=== PATIENT | female | born 1970 | race Caucasian/White ===

== ENCOUNTER 2021-12-26 08:14 | Outpatient (CLI) | payer OTHER, SELFPAY ==
--- NOTE | 2021-12-26 08:15 | TELERAD_ITS ---
[address] [address] Phone:?[phone] Fax:?[phone] Referring Physician Information: Mg Ashley [address] [facility] [facility] [address] Phone:?[phone] Fax:?[phone] Patient:Jing Lu D.O.B:?1970 Sex:?Female Phone:?[phone] [facility] MRN:[id number] Exam Date:?12/26/2021 ? EXAM: MRI of the RIGHT KNEE, without contrast CLINICAL INFORMATION: Female, 51 years old, with knee pain INDICATION: Knee pain PRIOR SURGERY: None reported. PLAIN FILMS: None available. COMPARISONS: No prior MRIs available. TECHNICAL INFORMATION: Using a 1.5T MR scanner and a localizing surface coil: sagittals: PD, PDFS coronals: PD, T2FS axials: PD, PDFS SEDATION: None CONTRAST: None FINDINGS: Knee joint: Effusion: Small sized right knee effusion. Popliteal cyst: None. Loose bodies: None. Subcutaneous and extra-articular soft tissues: Unremarkable. Ligaments: ACL: Intact ACL anteromedial and posterolateral bundles, without sprain or tear. PCL: Intact PCL, without acute or chronic injury. MCL: Intact MCL superficial and deep layers, without injury. LCL: Intact LCL, without injury. Posterolateral corner: No posterolateral corner soft tissue injury. Popliteus, biceps femoris, iliotibial band, popliteofibular ligament and lateral gastrocnemius are intact. Posteromedial corner: No posteromedial corner soft tissue injury. Semimembranosus, pes anserine tendons and posterior oblique ligament are without injury, tendinopathy or bursitis. Extensor mechanism: Patellar tendon: Intact, without tendinopathy. Quadriceps tendon: Intact, without tendinopathy. Retinacula: Medial and lateral retinacula are intact. Fat pads: Unremarkable infrapatellar Hoffa's, quadriceps and prefemoral fat pads. Medial compartment: Medial meniscus: Medial meniscus is abnormal in appearance with horizontal cleavage undersurface tearing in the posterior body and posterior horn over a length of approximately 1.6 cm (sagittal series 3). Complex intermediate grade vertical or radial tearing posterior horn/root without complete posterior root disruption (sagittal series 6 images 21-17). 8 mm meniscal flap is seen along the apical free edge of the posterior root (coronal series 7 image 21, sagittal series 6 image 18). Tearing results in 4 mm peripheral meniscal extrusion at the level of the body. Medial femoral condyle: Grade II/III chondral thinning along the anterior weightbearing medial femoral condyle measuring 15 x 15 mm with minimal spurring and marrow edema. Medial tibial plateau: Grade 2 chondral thinning along the posterior medial tibial plateau centrally. Lateral compartment: Lateral meniscus: No articular surface, meniscosynovial junction or root tear. No displacement, extrusion or parameniscal cyst. Lateral femoral condyle: No chondromalacia or osteochondral abnormality. Lateral tibial plateau: Grade II chondromalacia along the central weightbearing lateral tibial plateau without high-grade or full-thickness chondral defect. Patellofemoral joint: Patella: Grade 2 chondral thinning of the mid medial patellar facet and central midline ridge with focal near full-thickness fissure of the mid lateral patellar facet. Trochlea: No chondromalacia or osteochondral abnormality. Proximal tibiofibular joint: Proximal tibiofibular joint DJD with osteophytic spurring and subchondral cystic change. Bones: No stress/occult fractures or other marrow edema/pathology. IMPRESSION: 1. Complex tearing of the medial meniscus from the posterior body to the posterior horn/root as described above with intermediate grade incomplete tearing of the posterior horn/root. 8 mm meniscal flap at the apical free edge of the posterior root. Tearing results in 4 mm peripheral meniscal extrusion at the level of the body. 2. Medial compartment chondromalacia with grade 2 and grade 3 chondral changes as described above with marrow reactive edema in the medial femoral condyle and tibial plateau. 3. Mild lateral and patellofemoral chondromalacia without high-grade or full- thickness defect. 4. No lateral meniscus tear. 5. No cruciate or collateral ligament sprain/tear. 6. Small left knee joint effusion KME Electronically signed on 12/29/2021 9:49:00 AM by Desirae Lees M.D.
== END 2021-12-26 08:15 | disposition home or self-care (01) ==
LOC: MRI 08:17
PROVIDERS: Visit Provider Physician Assistant Surgical
DX: M25.561 Pain in right knee (principal); M23.221 Derangement of posterior horn of medial meniscus due to old tear or injury, right knee; M94.261 Chondromalacia, right knee; M25.461 Effusion, right knee
CPT/HCPCS: 73721

== ENCOUNTER 2022-03-12 06:09 | Day surgery (SDC) | payer OTHER, SELFPAY ==
[2022-03-12] VITALS (13 sets, daily range): BP systolic 93–142; BP diastolic 52–82; PULSE 59–81; RESP 16–18; TEMP 36.2–36.7; O2SAT 96–100; BMI 34.8
[2022-03-12 06:41] LABS: Ur HCG Qualitative* Negative (Negative)
[2022-03-12] MEDS: SODIUM CHLORIDE 0.9 % (FLUSH) 10 ML SYRINGE IVF (07:00)
[2022-03-12] MEDS: LACTATED RINGERS 1000 ML 1,000 ML 100 ML IV ×2 (07:00→08:24)
[2022-03-12] MEDS: CEFAZOLIN 2 GM INJ IVP (07:46)
[2022-03-12] MEDS: BUPIVACAINE 0.25% 30 ML INJECTION (08:25)
--- NOTE | 2022-03-12 08:25 | PM.ORPRC ---
Procedure Note Date of procedure: 03/12/22 Procedure: SURGEON: Parish Decker MD ELECTRIC RELAY TESTER: YESICA Lacey PREOPERATIVE DIAGNOSIS: Right knee medial meniscus tear POSTOPERATIVE DIAGNOSIS: Right knee medial meniscus tear NAME OF OPERATION: Right knee arthroscopic partial medial meniscectomy ANESTHESIA: Spinal ESTIMATED BLOOD LOSS: 0 mL COMPLICATIONS: None SPECIMENS: None DRAINS: None PREOPERATIVE ANTIBIOTICS: Ancef 2 gram INDICATIONS: The patient is a 51-year-old female with a history of right knee medial pain. MRI scan is consistent with a medial meniscus tear. Despite appropriate nonoperative management, including activity modification, antiinflammatories, [id number] pain medication, bracing, physical therapy, and injections they continue to have pain and disability. Operative intervention was offered. The risks, benefits and expected outcomes were discussed in detail. These included but were not limited to: Infection, bleeding, injury to blood vessel or nerve, venous thromboembolism. All questions were answered to their satisfaction. PROCEDURE: Spinal anesthesia was administered. The patient was placed supine on the operating room table. The right lower extremity was prepped and draped in the usual sterile fashion. The limb was exsanguinated with the Kwadwo bandage. The pneumatic tourniquet was inflated to 300 mmHg. A standard anterolateral portal was established. The arthroscope was introduced. The working portal was established anteromedially. Diagnostic arthroscopy was performed with findings as follows: The suprapatellar pouch is normal. Articular surface on the patella shows diffuse grade 2/3 change. Articular surface on the trochlea shows diffuse grade 2/3 change for. The medial gutter is normal. The medial compartment shows diffuse grade 3 change on the medial femoral condyle, grade 2 change on the medial tibial plateau. The medial meniscus has a complex degenerative tear of the posterior horn, into the midbody. This consists of an unstable flap tear at the posterior tibial attachment and undersurface horizontal cleavage tearing of the posterior horn, into the midbody, extending into undersurface of the anterior horn. The notch shows the ACL to be intact. The lateral compartment shows normal articular cartilage on the lateral femoral condyle and lateral tibial plateau. The lateral meniscus is normal. The lateral gutter is normal. The posterior horn of the medial meniscus was debrided to a stable base using a combination of baskets and shaver through both portals. Unstable chondral flaps on the medial femoral condyle, and patella were debrided with the shaver, taken to a stable base. Arthroscopic instruments were removed, the portal sites were Steri-Stripped closed, the knee was infiltrated with 30 mL of 0.25% Marcaine without epinephrine. A dry dressing was applied, the tourniquet was released. Sponge and needle counts were correct x 2. The patient tolerated the procedure well. There were no apparent complications. They were carefully transferred to the hospital bed and taken to the postanesthesia care unit in satisfactory condition. PLAN: The patient will be discharged to home. They may weightbear as tolerates. Range of motion will be unrestricted. They will follow up in the office next week for a wound check.
--- NOTE | 2022-03-12 08:43 | W.ANESCHARGE ---
Anesthesia Charges Start Date/Time Anesthesia Start Date: 03/12/22 Anesthesia Start Time: 07:31 Stop Date/Time Anesthesia Stop Date: 03/12/22 Anesthesia Stop Time: 08:32 Summary Emergency: No
--- NOTE | 2022-03-12 09:10 | W.ANESCHARGE ---
Anesthesia Charges Start Date/Time Anesthesia Start Date: 03/12/22 Anesthesia Start Time: 07:31 Stop Date/Time Anesthesia Stop Date: 03/12/22 Anesthesia Stop Time: 08:32 Summary Emergency: No
== END 2022-03-12 10:45 | disposition home or self-care (01) ==
PROVIDERS: Anesthesiology; Visit Provider Orthopaedic Surgery
PROC: (CPT 29882; principal; 2022-03-12 07:45)
DX: M23.221 Derangement of posterior horn of medial meniscus due to old tear or injury, right knee (principal)
CPT/HCPCS: 29881; 1400; 81025; J0690; J1100; J2250; J2405; J2704; J2795; J3010; J3490; J7120

== ENCOUNTER 2023-09-29 21:59 | Emergency (ER) | payer OTHER, SELFPAY ==
[2023-09-29 22:08] VITALS: BP 150/93; PULSE 76; RESP 16; TEMP 36; O2SAT 99; BMI 31.0
--- NOTE | 2023-09-29 22:11 | ED_ITS ---
HPI - GI Bleed General Time Seen by Provider: 22:11 Date Seen: 09/29/23 Chief complaint: GI Bleed Stated complaint: poss hemorroid burst Time Seen by Provider: 09/29/23 22:04 Source: patient, RN notes reviewed and old records reviewed Mode of arrival: ambulatory Limitations: no limitations History of Present Illness HPI Narrative: 52 year old female who comes in with rectal bleeding. Passed a clot with stooling earlier this evening after noticing a perirectal lump for couple of days. Not having too much pain but has had continued bleeding and so came to the emergency department Related Data Previous Rx's Medication Instructions Recorded docusate sodium 100 mg capsule 100 mg PO BID #10 caps 09/29/23 (Colace) Allergies Allergy/AdvReac Type Severity Reaction Status Date / Time No Known Drug Allergies Allergy Verified 05/13/22 13:58 [facility] Medical History (Updated 09/29/23 @ 22:25 by Luis Lackey MD) Thyroid disease ?E07.9 - Disorder of thyroid, unspecified (ICD-10) Surgical History (Updated 05/12/22 @ 12:53 by Liset Ghosh ~ [facility], [facility]) History of medial meniscus repair of right knee (03/12/22) ?Z98.890 - Other specified postprocedural states (ICD-10) History of laparoscopy ?Z98.890 - Other specified postprocedural states (ICD-10) History of suburethral sling procedure (2019) ?Z98.890 - Other specified postprocedural states (ICD-10) Social History (Reviewed 05/13/22 @ 13:58 by Liset Ghosh ~ [facility], [facility]) Narrative: , 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, 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, 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, social EtOH Smoking Status: Former smoker Do you use any of these nicotine containing products: None How often do you have a drink containing alcohol: never AUDIT-C Alcohol total score: 0 Non-prescribed substance use: denies use Caffeine: Yes Are you using contraception or practicing any form of control: No Exam Narrative: Exam Narrative: General: Well-developed and well-nourished, no acute distress Head: Atraumatic and normocephalic Eyes: Pupils are equal reactive, extraocular motions intact, conjunctiva clear ENT: External nose and ears are normal, posterior pharynx without erythema or exudate Neck: No midline cervical tenderness, full spontaneous range of motion the neck, trachea midline, no adenopathy Heart: Regular rate and rhythm no murmurs or thrills Lungs: Clear to auscultation bilaterally without wheezes or crackles Abdomen: Soft, nontender, nondistended with active bowel sounds Musculoskeletal: No tenderness, deformity, or edema Neurologic: Awake, alert, and oriented x3, no gross focal neurologic deficits, cranial nerves intact as tested Psych: Mood and affect are appropriate Skin: No rashes 15 mm thrombosed external hemorrhoid with central area fresh clot Const: Vital Signs, click to edit/add: Vital Signs - 24 hr 09/29/23 22:08 Temperature 96.8 F L Pulse Rate [Pulse Oximeter] 76 Respiratory Rate 16 Blood Pressure [Ri ght Upper Arm] 150/93 H Pulse Oximetry 99 Oxygen Delivery Me thod Room Air Course Course ED Course: Patient seen and examined, prior records are reviewed. Patient presents today with rectal bleeding, she has a bleeding external hemorrhoid. We discussed care of this and she follow-up with General surgery. Vital Signs Vital signs: Initial Vital Signs Temperature 96.8 F L 09/29/23 22:08 Temperature Source Temporal Artery Scan 09/29/23 22:08 Pulse Rate 76 09/29/23 22:08 Respiratory Rate 16 09/29/23 22:08 Blood Pressure 150/93 H 09/29/23 22:08 Blood Pressure Mean 112 H 09/29/23 22:08 Blood Pressure Position Sitting 09/29/23 22:08 Pulse Oximetry 99 09/29/23 22:08 Oxygen Delivery Method Room Air 09/29/23 22:08 Vital Signs Temperature 96.8 F L 09/29/23 22:08 Pulse Rate 76 09/29/23 22:08 Respiratory Rate 16 09/29/23 22:08 Blood Pressure 150/93 H 09/29/23 22:08 Pulse Oximetry 99 09/29/23 22:08 Oxygen Delivery Method Room Air 09/29/23 22:08 Temperature 96.8 F L 09/29/23 22:08 Pulse Rate 76 09/29/23 22:08 Respiratory Rate 16 09/29/23 22:08 Blood Pressure 150/93 H 09/29/23 22:08 Pulse Oximetry 99 09/29/23 22:08 Oxygen Delivery Method Room Air 09/29/23 22:08 Discharge Plan Discharge Clinical Impression: Bleeding external hemorrhoids Patient Disposition: Home, Self-Care Condition: Stable Instructions: Hemorrhoids (ED), Thrombosed Hemorrhoid (ED) Additional Instructions: Luke warm Sitz bath 2-3 times a day Take stool softeners prescribed For bleeding, apply cool pack and pressure Call the general surgery clinic for follow-up at [phone] or [phone] for an appointment in 2-4 days Activity Level: No strenuous activity Discharge Diet: High Fiber Prescriptions: New docusate sodium [Colace] 100 mg capsule 100 mg PO BID Qty: 10 0RF Follow Up/Referrals: Provider,Not a Local [Primary Care Provider] - Stand Alone Forms: Monitoring Divisionth Info Instructions
== END 2023-09-29 22:37 | disposition home or self-care (01) ==
LOC: ED 22:30
PROVIDERS: Emergency Provider Family Medicine
DX: K64.4 Residual hemorrhoidal skin tags (principal)
CPT/HCPCS: 99283

== ENCOUNTER 2024-09-29 09:10 | Outpatient (CLI) | payer OTHER, SELFPAY ==
[2024-10-01 04:16] LABS: HPV Source Cervix; HPV, High Risk by TMA Not Detected
== END 2024-09-29 09:11 | disposition home or self-care (01) ==
PROVIDERS: Visit Provider Obstetrics & Gynecology
DX: E03.9 Hypothyroidism, unspecified (principal); G25.81 Restless legs syndrome; R53.83 Other fatigue; Z12.4 Encounter for screening for malignant neoplasm of cervix; Z11.51 Encounter for screening for human papillomavirus (HPV); Z13.6 Encounter for screening for cardiovascular disorders; Z13.1 Encounter for screening for diabetes mellitus
CPT/HCPCS: 80061; 82728; 82947; 84443; 87624; 87625; 88141; 88142

== ENCOUNTER 2024-10-05 08:27 | Outpatient (CLI) | payer OTHER, SELFPAY ==
--- NOTE | 2024-10-05 08:45 | CRLHL7_ITS ---
For Patients: As a result of the Century Cures Act, medical imaging exams and procedure reports are released immediately into your electronic medical record. You may view this report before your referring provider. If you have questions, please contact your health care provider. CLINICAL HISTORY: RIGHT breast lump. COMPARISON: 10/05/24, 09/06/18, 12/09/16 TECHNIQUE: Digital BILATERAL mammogram in 2 projections with computer-aided detection. Tomosynthesis was used in this interpretation. Real-time ultrasound imaging of RIGHT breast with imaging documentation. BREAST COMPOSITION: There are scattered areas of fibroglandular density. FINDINGS: 3D cc/MLO bilateral mammogram images submitted. No suspicious mass or architectural distortion. No suspicious calcifications or adenopathy. Targeted right breast ultrasound performed 3 o`clock 3 cm from the nipple. Normal breast tissue is present. No fibrocystic change or mass. IMPRESSION: No suspicious findings. No evidence of malignancy. RECOMMENDATIONS: Routine screening mammography. A lay language report of this examination will be provided to the patient. BI-RADS Category 1. Negative. Dictated by: Aden Booker MD @ 10/05/2024 15:14:40 (Electronically Signed)
--- NOTE | 2024-10-05 09:15 | CRLHL7_ITS ---
For Patients: As a result of the Century Cures Act, medical imaging exams and procedure reports are released immediately into your electronic medical record. You may view this report before your referring provider. If you have questions, please contact your health care provider. CLINICAL HISTORY: RIGHT breast lump. COMPARISON: 10/05/24, 09/06/18, 12/09/16 TECHNIQUE: Digital BILATERAL mammogram in 2 projections with computer-aided detection. Tomosynthesis was used in this interpretation. Real-time ultrasound imaging of RIGHT breast with imaging documentation. BREAST COMPOSITION: There are scattered areas of fibroglandular density. FINDINGS: 3D cc/MLO bilateral mammogram images submitted. No suspicious mass or architectural distortion. No suspicious calcifications or adenopathy. Targeted right breast ultrasound performed 3 o`clock 3 cm from the nipple. Normal breast tissue is present. No fibrocystic change or mass. IMPRESSION: No suspicious findings. No evidence of malignancy. RECOMMENDATIONS: Routine screening mammography. A lay language report of this examination will be provided to the patient. BI-RADS Category 1. Negative. Dictated by Aden Booker MD @ 10/05/2024 11:26:59 AM (Electronically Signed)
== END 2024-10-05 08:28 | disposition home or self-care (01) ==
LOC: MAMMO 08:28
PROVIDERS: Visit Provider Obstetrics & Gynecology
DX: N63.10 Unspecified lump in the right breast, unspecified quadrant (principal)
CPT/HCPCS: 76642; 77066; G0279

== ENCOUNTER 2024-10-12 12:14 | Outpatient (CLI) | payer OTHER, SELFPAY ==
--- NOTE | 2024-10-12 13:35 | P.ANES_ITS ---
Anesthesia Charges Start Date/Time Anesthesia Start Date: 10/12/24 Anesthesia Start Time: 13:00 Stop Date/Time Anesthesia Stop Date: 10/12/24 Anesthesia Stop Time: 13:33 Coding CPT Codes CPT Codes: ANGELES LWR INTST NDSC NOS - 99697 ([id number]) P2 - PATIENT W/MILD SYST DISEASE, QX - CASINO INVESTIGATOR SVC W/ MD MED DIRECTION, QK - HVAC/R SERVICE TECHNICIAN 2-4 CNCRNT ANES PROC
--- NOTE | 2024-10-12 13:35 | W.ANESCHARGE ---
Anesthesia Charges Start Date/Time Anesthesia Start Date: 10/12/24 Anesthesia Start Time: 13:00 Stop Date/Time Anesthesia Stop Date: 10/12/24 Anesthesia Stop Time: 13:33 Coding CPT Codes CPT Codes: ANGELES LWR INTST NDSC NOS - 91908 ([id number]) P2 - PATIENT W/MILD SYST DISEASE, QX - RUNSTITCHING MACHINE OPERATOR SVC W/ MD MED DIRECTION, QK - ROLL UP HELPER 2-4 CNCRNT ANES PROC
--- NOTE | 2024-10-12 14:00 | P.ANES_ITS ---
Anesthesia Charges Start Date/Time Anesthesia Start Date: 10/12/24 Anesthesia Start Time: 13:00 Stop Date/Time Anesthesia Stop Date: 10/12/24 Anesthesia Stop Time: 13:33 Coding CPT Codes CPT Codes: ANGELES LWR INTST NDSC NOS - 91743 ([id number]) QK - AUDIO OPERATOR 2-4 CNCRNT ANGELES PROC, QX - JIG BUILDER SVC W/ MD MED DIRECTION, P2 - PATIENT W/MILD SYST DISEASE
--- NOTE | 2024-10-12 14:00 | W.ANESCHARGE ---
Anesthesia Charges Start Date/Time Anesthesia Start Date: 10/12/24 Anesthesia Start Time: 13:00 Stop Date/Time Anesthesia Stop Date: 10/12/24 Anesthesia Stop Time: 13:33 Coding CPT Codes CPT Codes: ANGELES LWR INTST NDSC NOS - 05233 ([id number]) QK - PAYROLL BENEFITS ADMINISTRATOR 2-4 CNCRNT ANGELES PROC, QX - LIFE SKILLS COORDINATOR VOLUNTEER SVC W/ MD MED DIRECTION, P2 - PATIENT W/MILD SYST DISEASE
== END 2024-10-12 12:15 | disposition home or self-care (01) ==
LOC: OP CLINIC 12:16
PROVIDERS: Visit Provider Surgery
DX: Z12.11 Encounter for screening for malignant neoplasm of colon (principal); D12.3 Benign neoplasm of transverse colon; D12.5 Benign neoplasm of sigmoid colon
CPT/HCPCS: 00811; 00812; 45385; 88305; J2704